=== PATIENT | female | born 1970 | race Caucasian/White ===

== ENCOUNTER → 2016-11-13 | Outpatient (CLI) | payer OTHER ==
[~2016-11-13] MED LIST: ALBU0.08 INH; ALBUAER19 INH; ASPI81TA28 PO; EPP3/2 IM; MULT-884 PO; SPIR50TA2 PO; TOPI50TA16 PO
[2016-11-16 23:03] LABS: MUMPS IgG VALUE 4.08; MUMPS VIRUS ANTIBODY IGM <1:20
== END ==
LOC: C.LAB 12:30
PROVIDERS: ATTEND Nurse Practitioner Family
DX: J00 Acute nasopharyngitis [common cold] (principal); J02.9 Acute pharyngitis, unspecified; M54.2 Cervicalgia; R51 Headache

== ENCOUNTER → 2017-06-05 | Outpatient (CLI) | payer OTHER | END | disposition home or self-care (01) | LOC: C.PAPS 10:21 | PROVIDERS: ATTEND Obstetrics & Gynecology | DX: Z12.4 Encounter for screening for malignant neoplasm of cervix (principal) ==

== ENCOUNTER → 2017-06-20 | Outpatient (CLI) | payer OTHER ==
--- NOTE | 2017-06-21 23:43 | PULMONARY FUNCTION TEST ---
Spirometry and flow volume loops are normal. There was no change following bronchodilators. Lung volumes showed a normal TLC but with a mild decrease in FRC and RV. Diffusion capacity is normal at 83%.
== END | disposition home or self-care (01) ==
LOC: C.RC 09:55
PROVIDERS: ATTEND Nurse Practitioner Family
DX: J45.41 Moderate persistent asthma with (acute) exacerbation (principal)

== ENCOUNTER 2017-08-13 08:13 | Emergency (ER) | payer OTHER ==
[~2017-08-13] VITALS: Ht 167.6 cm; Wt 100.9 kg
[2017-08-13 08:16] VITALS: TEMP 36.9; Ht 167.6 cm; Wt 100.9 kg
[2017-08-13] MEDS ORDERED: METHYLPREDNISOLONE 125 MG VIAL IV STA (08:51)
[2017-08-13] MEDS ORDERED: BCPILLS PO (09:10)
[2017-08-13] MEDS ORDERED: DIPH25CA65 PO (09:10)
[2017-08-13 09:16] LABS: BASO % 0.1 %; BASO ABS # 0.01 K/uL (0-0.2); COMPLETE YES; EOS % 1.3 %; HEMATOCRIT 39.2 % (37-47); IG% 0.3 %; LYMPH % 16.1 %; LYMPH ABS # 1.67 K/uL (1.2-3.4); MEAN CELL VOLUME 87.3 fL (80-100); MEAN CORPUSCULAR HEMOGLOBIN 29.8 pg (25-34); MEAN CORPUSCULAR HGB CONC 34.2 g/dl (32-36); MEAN PLATELET VOLUME 10.1 fL (7.4-10.4); MONO % 5.4 %; NEUT % 76.8 %; PLATELET COUNT 220 K/uL (130-400); RED BLOOD COUNT 4.49 M/uL (4.2-5.4); WHITE BLOOD COUNT 10.38 K/uL (4.8-10.8)
[2017-08-13] MEDS ORDERED: PRED20TA PO (10:15)
[2017-08-13 11:08] VITALS: BP 120/75; PULSE 75; O2SAT 96
== END 2017-08-13 11:18 | disposition home or self-care (01) ==
LOC: C.EDB 08:15
DX: T78.1XXA Other adverse food reactions, not elsewhere classified, initial encounter (principal); X58.XXXA Exposure to other specified factors, initial encounter; R22.1 Localized swelling, mass and lump, neck

== ENCOUNTER → 2017-08-31 | Outpatient (CLI) | payer OTHER ==
[~2017-08-31] MED LIST changes: -ALBU0.08 INH; -ALBUAER19 INH; +BCPILLS PO; +DIPH25CA65 PO; +PRED20TA PO
--- NOTE | 2017-08-31 13:47 | MAMMOGRAPHY REPORT ---
BILATERAL DIGITAL SCREENING MAMMOGRAM TOMOSYNTHESIS WITH CAD: 08/31/2017 CLINICAL HISTORY: Routine screening. Patient has no complaints. TECHNIQUE: Breast tomosynthesis in addition to standard 2D mammography was performed. Current study was also evaluated with a Computer Aided Detection (CAD) system. COMPARISON: Comparison is made to exams dated: 08/25/2016 mammogram, 08/24/2015 mammogram, 4 mammogram, 04/17/2013 mammogram, 11/02/2012 ultrasound, and 11/02/2012 mammogram - [facility]. BREAST COMPOSITION: The tissue of both breasts is heterogeneously dense, which may obscure small mas ses. FINDINGS: No suspicious masses, calcifications, or areas of architectural distortion are noted in ei ther breast. There has been no significant interval change compared to prior exams. IMPRESSION: ACR BI-RADS CATEGORY 1: NEGATIVE There is no mammographic evidence of malignancy. A 1 year screening mammogram is recommended. The pa tient will receive written notification of the results. Approximately 10% of breast cancers are not detected with mammography. A negative mammographic report should not delay biopsy if a clinically suggestive mass is present. Leslie Deleon M.D. /:08/31/2017 07:38:20 Medical Technologist Microbiology: Soniya Chamberlain, [facility] letter sent: Normal 1/2 BI-RADS Code: ACR BI-RADS Category 1: Negative
== END | disposition home or self-care (01) ==
LOC: C.MAMM 07:10
PROVIDERS: ATTEND Obstetrics & Gynecology
DX: Z12.31 Encounter for screening mammogram for malignant neoplasm of breast (principal)

== ENCOUNTER 2019-07-08 05:45 | Observation (INO) ==
--- NOTE | 2019-06-24 13:50 | PAT Medication Instructions ---
Medication Instructions Date of Service June 24, 2019 Home Medications albuterol sulfate HFA 90 mcg/actuation aerosol inhaler 1 - 2 puff INHALATION Q6H PRN albuterol sulfate concentrate 5 mg/mL(0.5 %) solution for nebulization 2.5 mg CONTINUOUS NEBULIZATION QID PRN cetirizine 10 mg disintegrating tablet 10 mg PO DAILY epinephrine 0.3 mg/0.3 mL injection, auto-injector 0.3 mg SUBCUT ONCE PRN [id number] sulfate 1 tab PO DAILY spironolactone 50 mg tablet 50 mg PO HS topiramate 50 mg tablet 50 mg PO HS budesonide-formoterol [Symbicort] 2 puff INHALATION BID sertraline 75 mg PO HS Control 1 dose PO DAILY Continue as directed epinephrine 0.3 mg/0.3 mL injection, auto-injector 0.3 mg SUBCUT ONCE PRN (if needed) ASK your prescriber and surgeon Control 1 dose PO DAILY DO NOT take the morning of surgery cetirizine 10 mg disintegrating tablet 10 mg PO DAILY ntnekrnd-faa-ftjdckg sulfate 1 tab PO DAILY Take morning of surgery With a small sip of water, OTHERWISE NOTHING TO EAT OR DRINK AFTER MIDNIGHT: albuterol sulfate HFA 90 mcg/actuation aerosol inhaler 1 - 2 puff INHALATION Q6H PRN (use if needed; please bring with you to hospital day of surgery if possible) albuterol sulfate concentrate 5 mg/mL(0.5 %) solution for nebulization 2.5 mg CONTINUOUS NEBULIZATION QID PRN (if needed) budesonide-formoterol [Symbicort] 2 puff INHALATION BID Take evening before surgery albuterol sulfate HFA 90 mcg/actuation aerosol inhaler 1 - 2 puff INHALATION Q6H PRN (if needed) albuterol sulfate concentrate 5 mg/mL(0.5 %) solution for nebulization 2.5 mg CONTINUOUS NEBULIZATION QID PRN (if needed) spironolactone 50 mg tablet 50 mg PO HS topiramate 50 mg tablet 50 mg PO HS budesonide-formoterol [Symbicort] 2 puff INHALATION BID sertraline 75 mg PO HS Other Notes If you have any questions please call us at [phone] or [phone] or [phone] or [phone]
--- NOTE | 2019-06-25 11:46 | Anesthesiology Consultation ---
Date of Service June 25, 2019 Assessment & Plan (1) Encounter for pre-operative examination: - Check test AM DOS Chart Review Chart Review: Pending: Refer to Additional Notes / Consult section (pending p reop testing (labs)) and Patient seen in Pre Admission Testing Teaching & Discussion Pre-Anesthesia Teaching/Discussion Notes: Instructed NPO after midnight before s urgery,except medications with 15 cc of water. Medication instructions provided according to the PAT guidelines. History Surgery Operation Date: 07/08/19 07:30 Proposed Procedures p Robotic Total Laparoscopic Hysterectomy - Jayson Vela MD, FACOG Height/Weight Height: 5 ft 6.5 in Weight: 106 kg Allergies Allergy/AdvReac Type Severity Reaction Status Date / Time bee venom protein (honey bee) Allergy Severe ANAPHYLAXIS Verified 06/25/19 10:41 Sulfa (Sulfonamide Allergy Unknown HIVES-RASH Verified 06/25/19 10:41 Antibiotics) verapamil Allergy Unknown HIVES-RASH Verified 06/25/19 10:41 bupropion AdvReac Unknown increased Verified 06/25/19 10:41 anxiety erythromycin base AdvReac Unknown GI upset Verified 06/25/19 10:41 sulfadiazine AdvReac Unknown Rash Verified 06/25/19 10:41 Medications Home Medications Medication Instructions Recorded Confirmed Last Taken albuterol sulfate HFA 90 1 - 2 puff INHALATION Q6H PRN gm 05/21/19 06/19/19 Unknown mcg/actuation aerosol inhaler albuterol sulfate concentrate 5 2.5 mg CONTINUOUS NEBULIZATION QID 05/21/19 06/19/19 Unknown mg/mL(0.5 %) solution for PRN ml nebulization cetirizine 10 mg disintegrating 10 mg PO DAILY tab 05/21/19 06/19/19 06/08/19 tablet epinephrine 0.3 mg/0.3 mL 0.3 mg SUBCUT ONCE PRN ea 05/21/19 06/19/19 Unknown injection, auto-injector uycqksgr-zkp-tfrqytx sulfate 1 tab PO DAILY 05/21/19 06/19/19 06/08/19 spironolactone 50 mg tablet 50 mg PO HS tab 05/21/19 06/19/19 06/08/19 topiramate 50 mg tablet 50 mg PO HS tab 05/21/19 06/19/19 06/08/19 budesonide-formoterol [Symbicort] 2 puff INHALATION BID 06/09/19 06/19/19 06/08/19 sertraline 75 mg PO HS 06/09/19 06/19/19 06/08/19 norethindrone-ethinyl estradiol 1 1 tab PO DAILY 06/25/19 06/25/19 Unknown mg-35 mcg tablet Past Medical History Medical History Anxiety Arthritis right shoulder Asthma Heavy menstrual bleeding reason for upcoming procedure History of migraine hx complex migraines History of ovarian cyst IBS (irritable bowel syndrome) Left knee pain s/p cortisone injection early 06/2019 Exercise / Class Metabolic Activity II 4-5 Yardwork/Stairs/Walk up hill Past Family History Family History Mother Dyslipidemia Father Hypertension Grandmother (Maternal) Hypertension Breast cancer Past Surgical History Surgical History History of cholecystectomy History of colonoscopy History of hemorrhoidectomy History of laparoscopy DIAGNOSTIC History of left knee surgery History of tonsillectomy and adenoidectomy History of tubal ligation Hart teeth extracted Past Anesthesia History No Hx of Anesthesia Complications and No Family Hx of Anesthesia Complications History of PONV No Hx of PONV and No Hx of Motion Sickness Social History Smoking Status: Never smoker Do You Dip or Chew Tobacco: No Hx Alcohol Use: Yes Alcohol type: beer and wine alcohol intake frequency: holidays/special occasions only Hx Substance Use: No substance use type: does not use Review of Systems Hx atypical chest pain- cardiac workup negative (including EKG/troponins)/felt to be related to anxiety- no issues since. Patient denies shortness of breath, dyspnea on exertion, cough, wheezing, palpitations. Physical Exam Vital Signs VITALS BP 120/84 P 89 TEMP 98.0 SP02 95%RA RESP 18 PHYSICAL Full neck and c-spine range of motion. Full TMJ range of motion. TMD 3 finger breaths Mallampati Score 2 Dentition: intact, permanent upper left side, upper front crowns Lungs: clear throughout to auscultation Cardiac: regular rate and rhythm, no murmurs noted Spine: normal Carotid arteries: negative bruit Extremities: no edema Testing Laboratory Results 06/08/19 WBC 9.11 H/H 13.3/40.4 PLATELETS 233 SODIUM 143 POTASSIUM 3.9 CHLORIDE 111 CO2 23 BUN 18 CREATININE 1.20 GLUCOSE 99 Electrocardiogram Date: 06/09/19 Findings: + NSR @ (63) Chest X-Ray Date: 06/09/19 Findings: + NAD
[2019-07-08] MEDS ORDERED: CEFAZOLIN 3000MG 65 ML IV SCH (06:00)
[2019-07-08] MEDS ORDERED: LR 15ML/HR IV SCH (06:00)
[2019-07-08] MEDS ORDERED: LACTATED RINGER'S 1,000 ML IV SCH ×2 (06:00→10:21)
[2019-07-08] MEDS ORDERED: ACETAMINOPHEN 1000 MG/100 ML IV IV ONE (06:41)
[2019-07-08] MEDS ORDERED: DEXAMETHASONE SOD INJ 4 MG/ML VIAL ONE (06:47)
[2019-07-08] MEDS ORDERED: PROPOFOL IV EMULSION 10 MG/ML 20 ML VIAL IV ONE (06:47)
[2019-07-08] MEDS ORDERED: MIDAZOLAM HCL 1 MG/ML 2ML VIAL ONE (06:47)
[2019-07-08] MEDS ORDERED: ROCURONIUM BROMIDE 10 MG/ML 5 ML VIAL ONE ×2 (06:47→08:53)
[2019-07-08] MEDS ORDERED: fentaNYL citrate 100 MCG/2 ML VIAL ONE ×3 (06:47→08:53)
[2019-07-08] MEDS ORDERED: ONDANSETRON INJ 2 MG/ML 2 ML VIAL ONE (06:47)
[2019-07-08] MEDS ORDERED: LIDOCAINE HCL 2% 2 ML VIAL/AMP(20MG/ML) INFIL ONE (06:47)
[2019-07-08] MEDS ORDERED: BUPIVACAINE 0.5 % 5 MG/1 ML MPF 30ML VIAL ONE (06:55)
[2019-07-08] MEDS ORDERED: METHYLENE BLUE 0.5% 10 ML VIAL ONE (06:55)
--- NOTE | 2019-07-08 06:56 | History & Physical Bridge Note ---
Date of Service July 08, 2019 History & Physical Bridge Note I have examined the patient, reviewed the History & Physical and in the interval since the performance of the History & Physical I have noted the following changes of clinical significance: no changes noted
[2019-07-08] MEDS ORDERED: HYDROmorphone INJ 1 MG/ML SYRINGE IV PRN (07:10)
[2019-07-08] MEDS ORDERED: ONDANSETRON INJ 2 MG/ML 2 ML VIAL IV PRN ×2 (07:10→10:21)
[2019-07-08] MEDS ORDERED: LABETALOL HCL IV 5 MG/ML 20ML IV PRN (07:10)
[2019-07-08] MEDS ORDERED: ATROPINE SULFATE 0.1 MG/ML 10ML SYR IV PRN (07:10)
[2019-07-08] MEDS ORDERED: KETOROLAC 30 MG/ML VIAL IV PRN ×2 (07:10→10:21)
[2019-07-08] MEDS ORDERED: KETOROLAC 30 MG/ML VIAL ONE (08:53)
[2019-07-08] MEDS ORDERED: NEOSTIGMINE METHYLSULFATE 5 MG/5 ML SYR ONE (08:53)
--- NOTE | 2019-07-08 09:14 | Post Operative Brief Note ---
PG Immediate Post Op with CF Date of Surgery July 08, 2019 Patient given a general anesthetic prepped and draped in dorsal lithotomy po sition in yellowfin stirrups bladder drained with a Schuler catheter V care inserted into her uterus and sewn in place gloves changed and a supraumbilical incision made with scalpel using Sánchez technique we did a cutdown into the peritoneal cavity blunt-tipped Sánchez trocar placed CO2 gas then used to inflate the balloon and inflate the abdomen as well. Findings upper abdomen normal no sign of visceral organ injury deep Trendelenburg position and obtain reviewed the pelvis it appeared normal prior tubal ligation no evidence of endometriosis uterus ovaries pelvic sidewalls bladder flap all normal 2 robotic ports one in the left one on the right placed 11 mm millimeter blade less excess report in the left upper quadrant robot docked arm number month 1 was monopolar angélica arm #2 was bipolar [place] using the V care to manipulate identify the ureter course in both the right and left side remove the fallopian tube first on the left and on the right side these were then removed for the ex cess report we then coagulated the blood supply distal to the left ovary with the bipolar [place] and cut this with the monopolar angélica same process with the round ligament skeletonized the left side of the uterine vessels sharply dissected away the bladder flap and then coagulated the left uterine vessels with the bipolar [place] cut these with the monopolar angélica we were well away from the left ureter The exact same process was continued on the right with both supplies of vasculature to the uterus were controlled we then made an anterior colpotomy with the monopolar angélica colpotomy was completed uterus removed into the vagina and kept there to maintain pneumoperitoneum We then did instrument exchange our 1 was the Allen sheet pile driver operator arm #2 was the [employer] grasper 12 inch 20V lock 90-day suture then passed the excess report cuff was closed from left to right back right to left taking at least 1 cm full-thickness bites of vaginal mucosa suture was cut to there was no tail needle removed for the excess report after generous irrigation suction 4 mL of Tisseel was applied to the pedicles Cystoscopy was performed by removing the Schuler catheter on inspection there was no sign of sutures defects and good strong jets of clearish urine from both left and right ureter openings cystoscope removed new Schuler catheter placed uterus to be removed from the vagina Gloves changed and we removed all the instruments ports removed incisions injected with 0.5% Marcaine fascia closed with 0 Vicryl in the umbilical and left upper quadrant incisions 4 oh septic or Monocryl and Dermabond applied sp onge and instrument counts correct Pre & Post Diagnosis Operation Date: 07/08/19 07:30 Pre-Op Diagnosis: Pelvic Pain, Abnormal Uterine Bleeding Post-Op Diagnosis: Pelvic Pain, Abnormal Uterine Bleeding I identified the patient and participated in the time-out.: Yes Procedure Operation Date: 07/08/19 07:30 Actual Procedures p Robotic Total Laparoscopic Hysterectomy with bilateral salpingectomy, cystoscopy(Not Applicable) - Jayson Vela MD, FACOG July 08, 2019 Patient given a general anesthetic prepped and draped in dorsal lithotomy position in yellowfin stirrups bladder drained with a Schuler catheter V care inserted into her uterus and sewn in place gloves changed and a supraumbilical incision made with scalpel using Sánchez technique we did a cutdown into the peritoneal cavity blunt-tipped Sánchez trocar placed CO2 gas then used to inflate the balloon and inflate the abdomen as well. Findings upper abdomen normal no sign of visceral organ injury deep Trendelenburg position and obtain reviewed the pelvis it appeared normal prior tubal ligation no evidence of endometriosis uterus ovaries pelvic sidewalls bladder flap all normal 2 robotic ports one in the left one on the right placed 11 mm millimeter blade less excess report in the left upper quadrant robot docked arm number month 1 was monopolar angélica arm #2 was bipolar [place] using the V care to manipulate identify the ureter course in both the right and left side remove the fallopian tube first on the left and on the right side these were then removed for the excess report we then coagulated the blood supply distal to the left ovary with the bipolar [place] and cut this with the monopolar angélica same process with the round ligament skeletonized the left side of the uterine vessels sharply dissected away the bladder flap and then coagulated the left uterine vessels with the bipolar [place] cut these with the monopolar angélica we were well away from the left ureter The exact same process was continued on the right with both supplies of vasculature to the uterus were controlled we then made an anterior colpotomy with the monopolar angélica colpotomy was completed uterus removed into the vagina and kept there to maintain pneumoperitoneum We then did instrument exchange our 1 was the Allen sheet pile driver operator arm #2 was the [employer] grasper 12 inch 20V lock 90-day suture then passed the excess report cuff was closed from left to right back right to left taking at least 1 cm full-thickness bites of vaginal mucosa suture was cut to there was no tail needle removed for the excess report after generous irrigation suction 4 mL of Tisseel was applied to the pedicles Cystoscopy was performed by removing the Schuler catheter on inspection there was no sign of sutures defects and good strong jets of clearish urine from both left and right ureter openings cystoscope removed new Schuler catheter placed uterus to be removed from the vagina Gloves changed and we removed all the instruments ports removed incisions injected with 0.5% Marcaine fascia closed with 0 Vicryl in the umbilical and left upper quadrant incisions 4 oh septic or Monocryl and Dermabond applied sponge and instrument counts correct Surgeon Jayson Vela MD, FACOG Client Delivery Specialist none Estimated Blood Loss 15 Findings Consistent with Post-Op Diagnosis Specimens Specimen Description: A. Uterus, cervix, bilateral fallopian tubes Drains Schuler Catheter
[2019-07-08] MEDS ORDERED: ALBUTEROL 0.083% NEBU SOLN 3 ML VIAL INH PRN (09:22)
--- NOTE | 2019-07-08 10:11 | Anesthesiology Progress Note ---
Date of Service July 08, 2019 Anesthesia Post Procedure Vital Signs Vital Signs: Temp Pulse Pulse Resp BP BP Pulse Ox 07/08/19 10:05 84 16 112/71 94 07/08/19 09:55 95 H 18 131/89 94 07/08/19 09:45 86 18 128/83 94 07/08/19 09:35 86 18 116/91 97 07/08/19 09:33 99 H 1 L 94 07/08/19 09:25 79 18 125/82 97 07/08/19 09:16 36.6 C 87 18 141/90 H 98 07/08/19 06:27 36.6 C 77 18 137/88 98 Pain Intensity Left Knee: Pain Intensity: 0 Transfer of Care Handoff Completed per policy Notes Mental Status: alert / awake / arousable Patient Amnestic to Procedure: Yes Nausea / Vomiting: adequately controlled Pain: adequately controlled Airway Patency, RR, SpO2: stable & adequate BP & HR: stable & adequate Hydration State: stable & adequate Anesthetic Complications: no major complications apparent
[2019-07-08] MEDS ORDERED: OXYCODONE/ACETAMINOPHEN 5mg/325mg TAB PO PRN ×2 (10:21)
[2019-07-08] MEDS ORDERED: IBUPROFEN 600 MG TAB PO PRN (10:21)
[2019-07-08] MEDS ORDERED: MEPERIDINE HCL 50 MG/ML CARP IV PRN (10:21)
[2019-07-08] MEDS ORDERED: PROMETHAZINE HCL 12.5 MG in SODIUM CHLORIDE 0.9% 50 ML IV PRN (10:21)
[2019-07-08] MEDS ORDERED: ALBUTEROL 0.083% NEBU SOLN 3 ML VIAL NEB PRN (10:21)
[2019-07-08] MEDS ORDERED: BISACODYL 10 MG SUPP PR PRN (10:21)
[2019-07-08] MEDS ORDERED: ZOLPIDEM TARTRATE 5 MG TAB PO PRN (10:21)
[2019-07-08] MEDS ORDERED: MAGNESIUM HYDROXIDE SUSP 30 ML UDC PO PRN (10:21)
[2019-07-08] MEDS ORDERED: ACETAMINOPHEN 325 MG TAB PO PRN (10:21)
[2019-07-08] MEDS ORDERED: ALBUTEROL HFA 8 GM INHALER INH PRN (10:21)
[2019-07-08] MEDS ORDERED: SIMETHICONE 80 MG CHEW PO PRN (10:21)
[2019-07-08] MEDS ORDERED: TOPIRAMATE 50 MG TAB PO SCH (21:00)
[2019-07-08] MEDS ORDERED: SERTRALINE HCL 50 MG TABLET PO SCH (21:00)
[2019-07-08] MEDS ORDERED: BUDESONIDE/FORMOTEROL FUMARATE 160/4.5 60 PUFFS/INHALER INH SCH (21:00)
[2019-07-08] MEDS ORDERED: DOCUSATE SODIUM 100 MG CAP PO SCH (21:00)
[2019-07-08] MEDS ORDERED: SPIRONOLACTONE 25 MG TAB PO SCH (21:00)
[2019-07-09] MEDS ORDERED: CETIRIZINE HCL 10 MG TABLET PO SCH (09:00)
[2019-07-09] MEDS ORDERED: CEROVITE ADV FORMULA TAB PO SCH (09:00)
--- NOTE | 2019-07-09 09:24 | Discharge Summary ---
Date of Service July 09, [address] [facility] Jul 08 and discharged only a few hours after surgery. Discharge Data Procedures Performed Operation Date: 07/08/19 07:30 Actual Procedures p Robotic Total Laparoscopic Hysterectomy with bilateral salpingectomy, (Not Applicable) - Jayson Vela MD, FACOG s Cystoscopy(Not Applicable) - Jayson Vela MD, FACOG Hospital Course (1) History of hysterectomy: Discussed no heavy lifting and no intercourse at this time and that we will reassess at 6 weeks from surgery. Call if any problems or bleeding
== END 2019-07-08 14:28 | disposition home or self-care (01) ==
LOC: 4N 05:45 → ASU 05:45